=== PATIENT | female | born 1965 | race African-American/Black ===

== ENCOUNTER → 2017-07-14 | Outpatient (CLI) | payer MEDICAID, OTHER ==
--- NOTE | 2017-07-14 14:02 | KCIC ---
Right lower extremity venous doppler ultrasound History: Localized edema Comparison: None Findings: Multiple grayscale, color, and duplex spectral analysis sonographic images were acquired of the right lower extremity veins to evaluate for the presence of DVT. There is normal phasicity. Normal compression, color-flow, and augmentation is demonstrated from the right common femoral to the popliteal veins. There is normal color flow of the proximal greater saphenous and profunda femoris veins. There is normal color flow of segments of the calf veins. Impression: 1. There is no evidence of deep venous thrombosis from the right common femoral to popliteal veins. Electronically signed by: Omkar Parker MD (07/14/2017 1:58 PM) [facility]-[id number]
--- NOTE | 2017-07-14 14:05 | KCIC ---
Bilateral lower extremity arterial ultrasound History: Pain, swelling, surgical injury Findings: Multiple grayscale, color, and duplex spectral analysis sonographic images were acquired of the right lower extremity arteries. No focal vessel occlusion was identified. There are abnormal monophasic waveforms of the common femoral artery and profunda femoris artery, otherwise mostly biphasic waveforms. Velocities in cm/sec: Common femoral artery 189 Profunda femoris artery 60 Proximal SFA 99 Mid SFA 89 Distal SFA 90 Popliteal artery 42 Peroneal artery 40 Anterior tibial artery 112 Dorsalis pedis artery 97 Posterior tibial artery 49 Impression: 1. No focal vessel occlusion is demonstrated. There are abnormal monophasic waveforms of the right common femoral and profunda femoris arteries which may represent a component of inflow disease. Electronically signed by: Omkar Parker MD (07/14/2017 2:02 PM) [facility]
== END | disposition home or self-care (01) ==
LOC: KCIC US 12:57
PROVIDERS: ATTEND Internal Medicine
DX: M79.604 Pain in right leg (principal); M79.605 Pain in left leg; M79.89 Other specified soft tissue disorders; R60.0 Localized edema
CPT/HCPCS: 93926; 93971

== ENCOUNTER 2017-09-01 06:31 | Outpatient (CLI) | payer OTHER ==
[2017-09-01] VITALS (8 sets, daily range): BP systolic 119–152; BP diastolic 71–89
[~2017-09-01] VITALS: Ht 149.9 cm; Wt 88.0 kg
[2017-09-01] MEDS ORDERED: IV 1/2 NORMAL SALINE 1,000 ML IV SCH ×2 (06:50→09:06)
[2017-09-01] MEDS ORDERED: IODIXANOL 320 MG/ML 100 ML VIAL. ONE (07:13)
[2017-09-01] MEDS ORDERED: HEPARIN for ARTERIAL LINE 1,500 ML ONE (07:13)
[2017-09-01] MEDS ORDERED: LIDOCAINE 2% 20 ML VIAL. ONE (07:13)
[2017-09-01 07:33] LABS: HEMATOCRIT 37.2 % (36.0-47.0); HEMOGLOBIN 12.1 g/dL (12.0-15.5); RED BLOOD COUNT 4.16 x10^6/uL (3.50-5.40); RED CELL DISTRIBUTION WIDTH 13.5 % (11.5-14.5); WHITE BLOOD COUNT 4.9 x10^3/uL (4.0-11.0)
[2017-09-01 07:45] LABS: CALCIUM 9.3 mg/dL (8.5-10.1); CREATININE 1.1 mg/dL (0.6-1.0); GFR 63.6; POTASSIUM 3.3 mmol/L (3.5-5.1)
[2017-09-01 07:56] LABS: PROTHROMBIN TIME PATIENT 12.9 SEC (11.7-14.0)
[2017-09-01] MEDS ORDERED: LOSA1TAB19 PO (08:02)
[2017-09-01] MEDS ORDERED: OMEP40CA5 PO (08:02)
[2017-09-01] MEDS ORDERED: TRAM50TA PO (08:02)
[2017-09-01] MEDS ORDERED: HEPARIN for IV BOLUS 10,000 UNIT/10 ML VIAL. ONE (08:13)
[2017-09-01] MEDS ORDERED: fentaNYL PF VIAL 100 MCG/2 ML VIAL ONE (08:13)
[2017-09-01] MEDS ORDERED: MIDAZOLAM HCL/PF 2 MG/2 ML VIAL. ONE (08:13)
[2017-09-01] MEDS ORDERED: fentaNYL PF VIAL 100 MCG/2 ML VIAL IV ONE (08:45)
[2017-09-01] MEDS ORDERED: IODIXANOL 320 MG/ML 100 ML VIAL. IART ONE (08:45)
[2017-09-01] MEDS ORDERED: MIDAZOLAM HCL/PF 2 MG/2 ML VIAL. IV ONE (08:45)
[2017-09-01] MEDS ORDERED: LIDOCAINE 2% 20 ML VIAL. IJ ONE (08:45)
[2017-09-01] MEDS ORDERED: POTASSIUM CHLORIDE 20 MEQ TABLET.ER. PO ONE (09:00)
--- NOTE | 2017-09-01 09:06 | PDOC ---
MODERATE SEDATION ASSESSMENT RISKS/ALTERNATIVES Risks/Alternatives Risks and alternatives of this type of sedation and procedure discussed with: RISK/ALTERNATIVES: Patient H & P ON CHART H & P H & P on chart and reviewed for co-morbid conditions and appropriate labs. H&P ON CHART: Yes STATUS PREG STATUS ASSESSED: N/A MEDS/ALLERGIES REVIEWED Meds/Allergies Reviewed Medications and Allergies including time and route of recently administered narcotics and sedatives. MEDS/ALLERGIES REVIEWED: Yes ASA RATING ASA RATING: II AIRWAY ASSESSMENT Airway Assessment Airway patency, oral function limitations, presence of caps, crowns, dentures, partials, and ability to extend neck assessed. AIRWAY ASSESSMENT: Yes MALLAMPATI SCORE MALLAMPATI SCORE: II PRE-SEDATION ASSESSMENT PRE-SEDATION ASSESSMENT: Yes OLI MONTES DE OCA MD Sep 01, 2017 09:06
--- NOTE | 2017-09-01 09:18 | CARD ---
APPROVED REPORT Procedure(s) performed: Moderate Sedation: 37 Minutes
== END 2017-09-01 11:15 | disposition home or self-care (01) ==
LOC: CCL 06:31
PROVIDERS: ATTEND Internal Medicine Cardiovascular Disease
DX: I70.213 Atherosclerosis of native arteries of extremities with intermittent claudication, bilateral legs (principal); E78.00 Pure hypercholesterolemia, unspecified; I10 Essential (primary) hypertension; K21.9 Gastro-esophageal reflux disease without esophagitis; Z98.51 Tubal ligation status; Z87.39 Personal history of other diseases of the musculoskeletal system and connective tissue
CPT/HCPCS: 36246; 36415; 75630; 80048; 85027; 85610; 99152; 99153; C1769; C1771; C1892; G0269; J1644; J2250; J3010; Q9967; J2001

== ENCOUNTER → 2017-09-16 | Outpatient (CLI) | payer OTHER ==
[2017-09-01 11:00] VITALS: BP 119/85
[~2017-09-16] MED LIST: LOSA1TAB19 PO; OMEP40CA5 PO; TRAM50TA PO
--- NOTE | 2017-09-16 13:11 | CARD ---
APPROVED REPORT EXAM: Two-dimensional and M-mode echocardiogram with Doppler and color Doppler. Other Information Quality : Good INDICATION Hypertension/HCVD 2D DIMENSIONS Left Atrium(2D)3.4 (1.6-4.0cm)IVSd1.2 (0.7-1.1cm) Aortic Root(2D)2.6 (2.0-3.7cm)LVDd4.7 (3.9-5.9cm) LVOT Diameter2.0 (1.8-2.4cm)PWd1.2 (0.7-1.1cm) LVDs3.2 (2.5-4.0cm)FS (%) 31.8 % SV60.8 mlLVEF(%)59.8 (>50%) Aortic Valve AoV Peak Tomas.138.7cm/sAoV VTI26.3cm AO Peak GR.7.7mmHgLVOT Peak Tomas.100.4cm/s AO Mean GR.4mmHgAVA (VMAX)2.27cm2 BART (VTI)2.50cm2 Mitral Valve MV E Zfvbqizt41.2cm/sMV DECEL SMQC852hj MV A Hrdbyfqd425.9cm/sE/A Ratio0.7 Tricuspid Valve TR P. Lwwvyuwx015eb/sRAP GZDNHIXK0jzLh TR Peak Gr.90ecUbXYHX18zoEz Pulmonary Vein S1 Ajpiidll30.7cm/sD2 Hqykryro02.2cm/s LEFT VENTRICLE The left ventricle is normal size. There is mild concentric left ventricular hypertrophy. Left ventri rhoda systolic function is normal. The Ejection Fraction is 55-60%. There is normal LV segmental wall m otion. Transmitral Doppler flow pattern is Grade I-abnormal relaxation pattern. RIGHT VENTRICLE The right ventricle is normal size. The right ventricular systolic function is normal. ATRIA The left atrium size is normal. The right atrium size is normal. The interatrial septum is intact wit h no evidence for an atrial septal defect or patent foramen ovale as noted on 2-D or Doppler imaging. AORTIC VALVE The aortic valve is calcified but opens well. Doppler and Color Flow revealed no significant aortic r egurgitation. There is no significant aortic valvular stenosis. MITRAL VALVE The mitral valve is mildly calcified but opens well. There is no evidence of mitral valve prolapse. T here is no mitral valve stenosis. Doppler and Color Flow revealed no mitral valve regurgitation noted . TRICUSPID VALVE The tricuspid valve is normal in structure. Doppler and Color Flow revealed mild tricuspid regurgitat ion. There is mild pulmonary hypertension. The PA pressure was estimated at 32 mmHg. There is no tric uspid valve prolapse or vegetation. There is no tricuspid valve stenosis. PULMONIC VALVE The pulmonary valve is normal in structure and function. Doppler and Color Flow revealed no pulmonic valvular regurgitation. There is no pulmonic valvular stenosis. GREAT VESSELS The aortic root is normal in size. The ascending aorta is normal in size. The IVC is normal in size a nd collapses >50% with inspiration. PERICARDIAL EFFUSION There is no pleural effusion. There is no evidence of significant pericardial effusion. Critical Notification Critical Value: No <Conclusion> Left ventricle systolic function is normal. The Ejection Fraction is 55-60%. There is normal LV segmental wall motion. Transmitral Doppler flow pattern is Grade I-abnormal relaxation pattern. Mild tricuspid regurgitation. The PA pressure was estimated at 32 mmHg. There is no evidence of significant pericardial effusion.
--- NOTE | 2017-09-22 07:10 | EKG ---
[facility] [address] [place] [address] Test Date: 2017-09-22 Test Time: 05:03:14 Pat Name: DEDE NEELY Department: Room: Gender: Returns Clerk: : 1965 Requested By: OLI MONTES DE OCA Order Number: [id number] Reading MD: Armani Thomson MD Interpretive Statements NO SIGNIFICANT ARRHYTHMIAS Electronically Signed On 09-22-2017 15:30:47 MOLD FILLING OPERATOR by Armani Thomson MD
== END | disposition home or self-care (01) ==
LOC: ECHO 10:46
PROVIDERS: ATTEND Internal Medicine Cardiovascular Disease
DX: I11.9 Hypertensive heart disease without heart failure (principal); I07.1 Rheumatic tricuspid insufficiency; I27.20 Pulmonary hypertension, unspecified; R00.2 Palpitations
CPT/HCPCS: 93225; 93306

== ENCOUNTER → 2018-12-20 | Outpatient (CLI) | payer OTHER ==
[2017-09-01 11:00] VITALS: BP 119/85
--- NOTE | 2018-12-21 12:44 | KCIC ---
Bilateral digital screening mammograms with 3-D tomosynthesis: Reason for examination: Routine screening. Comparison is made to previous studies dated 01/13/2017 and 12/12/2015. Bilateral mammograms in CC and oblique projections were obtained with 2-D imaging and 3-D tomosynthesis imaging on a Siemens Inspiration unit and reviewed on the workstation. Interpretation was made with the benefit of CAD. The skin and nipples show no abnormalities. No abnormal axillary lymph nodes are seen. The breast parenchyma is heterogeneously dense. (Breast density: Category C.) There are patchy areas of parenchymal asymmetry which are stable. There are no dominant masses, suspicious calcifications or architectural distortion. Impression: No evidence of malignancy. Recommend routine screening. Your patient's mammogram demonstrates that she has dense breast tissue (breast density category C or D), which could hide abnormalities, and if she has other risk factors for breast cancer that have been identified, she might benefit from supplemental screening tests that may be suggested by you as her ordering physician. Dense breast tissue, in and of itself, is a relatively common condition. Therefore, this information is not provided to cause undue concern, but rather to raise your awareness and to promote discussion with your patient regarding the presence of other risk factors, in addition to dense breast tissue. Your patient's mammography results will be sent to her. BI-RAD Category 2: Benign. "Our facility is accredited by the [employer] Mammography Program." This patient's information has been entered into a reminder system for the patient to be notified with the results of her examination and a target date for the next mammogram. Electronically signed by: Lynette Marcos MD (12/21/2018 12:41 PM) [facility]
== END | disposition home or self-care (01) ==
LOC: KCIC MAMMO 17:48
DX: Z12.31 Encounter for screening mammogram for malignant neoplasm of breast (principal); R92.8 Other abnormal and inconclusive findings on diagnostic imaging of breast
CPT/HCPCS: 77063; 77067

== ENCOUNTER → 2020-01-23 | Outpatient (CLI) | payer OTHER ==
[2017-09-01 11:00] VITALS: BP 119/85
[~2020-01-23] MED LIST changes: +OMEP40CA45 PO; -OMEP40CA5 PO
--- NOTE | 2020-01-23 12:07 | KCIC ---
EXAM: Bilateral digital screening mammogram with tomosynthesis. HISTORY: 54-year-old female presents for screening mammography. TECHNIQUE: Full-field digital craniocaudal and mediolateral oblique 2D and 3D tomosynthesis images of both breasts are obtained for evaluation. Computer aided detection with [employer] MarsD software version 9.3 was applied. COMPARISON: 12/20/2018 BREAST PARENCHYMAL DENSITY: Level B - Scattered fibroglandular densities. FINDINGS: There is no new suspicious mass, microcalcification or region of architectural distortion. There is stable areas of nodularity and asymmetry within both breasts, including a small circumscribed nodule within the medial subareolar aspect of the left breast. IMPRESSION: BI-RADS Category 2: Benign finding(s). RECOMMENDATION: Annual mammography is recommended. If your mammogram demonstrates that you have dense breast tissue, which could hide abnormalities, and if you have other risk factors for breast cancer that have been identified, you might benefit from supplemental screening tests that may be suggested by your ordering physician. Dense breast tissue, in and of itself, is a relatively common condition. This information is not provided to cause undue concern, but rather to raise your awareness and to promote discussion with your physician regarding the presence of other risk factors, in addition to dense breast tissue. A report of your mammography results will be sent to you and your physician. You should contact your physician if you have any questions or concerns regarding this report. Mammography is a sensitive method for finding small breast cancers, but it does not detect them all and is not a substitute for careful clinical examination. A negative mammogram does not negate a clinically suspicious finding and should not result in delay in biopsying a clinically suspicious abnormality. PQRS compliance statement - Patient information was entered into a reminder system with a target due date for the next mammogram. "Our facility is accredited by the [employer] Mammography Program." Electronically signed by: Batool Grijalva MD (01/23/2020 12:04 PM) [email or web address]
== END | disposition home or self-care (01) ==
LOC: KCIC MAMMO 10:08
PROVIDERS: ATTEND Family Medicine
DX: Z12.31 Encounter for screening mammogram for malignant neoplasm of breast (principal); N63.42 Unspecified lump in left breast, subareolar
CPT/HCPCS: 77063; 77067

== ENCOUNTER → 2020-03-09 | Outpatient (CLI) | payer OTHER ==
[2017-09-01 11:00] VITALS: BP 119/85
[~2020-03-09] MED LIST changes: +REGADENOSON 0.4 MG/5 ML DISP.SYRIN. IV ONE
--- NOTE | 2020-03-09 10:48 | RAD ---
MR#: [id number] Date of Study: 03/09/2020 Ordering Physician: OLI MONTES DE OCA Referring Physician: JUANY DUPREE Tech: APPROVED REPORT Test Type: Pharmacological Stress Nurse/Tech: Beena Andrade RN Test Indications: Dyspnea on exertion Cardiac History: Hypertension, Family history Medications: See Electronic Medical Record Medical History: See Electronic Medical Record Resting ECG: SR Resting Heart Rate: 77 bpm Resting Blood Pressure: 154/90mmHg Pretest Chest Pain: No chest pain Nurse/Tech Notes S1S1, Lungs CTA Consent: The procedure was explained to the patient in lay terms. Informed consent was witnessed. Felix eout was entered into [employer]. History and Stress Test performed by JAYDEN Canales Pharm. Details Pharmacologic stress testing was performed using 0.4mg per 5ml of regadenoson given intravenously ove r 7-10 seconds. Stress Symptoms Dyspnea, Nausea POST EXERCISE Reason for Termination: Infusion complete Max HR: 133 bpm Max Blood Pressure: 168/92mmHg Blood Pressure response to exercise: Normal blood pressure response during stress. Heart Rate response to exercise: WNL Chest Pain: No. Arrhythmia: No. ST Change: No. INTERPRETATION Stress EKG Conclusion: Baseline EKG showed sinus rhythm. No ischemic changes at peak stress. No arr hythmias. STRESS DATA End Diast. Vol.84.0mlAv. Heart Rate76.0bpm End Syst. Vol.27.0mlCO Index BSA0.0L/min Myocardial Qgle202.0gEject. Exginfut26.0% Stress Rates Pk. Fill Rate3.66EDV/secLVtime Pk. Fill 229.90msec Pk. Empty Rate4.36ESV/secLVtime Pk. Enhsr699.37msec / Pk. Fill1.26EDV/sec Stress Scores Regional WT0.00Summed WT4.00 Regional WM0.00Summed WM0.00 LV Perfusion Stress scintigraphic images did not show any perfusion defects. Wall Motion Normal left ventricular systolic function with ejection fraction calculated at 68%. LV Perf. Quant 17 Seg. SSS0.00 Stress Defect Extent (% LAD)0.00Rest Defect Extent (% LAD)Rev. Defect Extent (% LAD)0.00 Stress Defect Extent (% LCX) 0.00Rest Defect Extent (% LCX)Rev. Defect Extent (% LCX)0.00 Stress Defect Extent (% RCA)0.00Rest Defect Extent (% RCA)Rev. Defect Extent (% RCA)0.00 Stress Defect Extent (% ADITYA)0.00Rest Defect Extent (% ADITYA)Rev. Defect Extent (% ADITYA)0.00 Conclusion 1. Regadenoson cardioisotope stress test did not show any evidence of ischemia or infarct. 2. Normal left ventricular systolic function with ejection fraction calculated at 68%. 3. Low risk for cardiac events. Signed by : Oli Montes De Oca, Electronically Approved : 03/09/2020 10:48:10
== END | disposition home or self-care (01) ==
LOC: NM 07:43
PROVIDERS: ATTEND Internal Medicine Cardiovascular Disease
DX: R06.09 Other forms of dyspnea (principal); I10 Essential (primary) hypertension
CPT/HCPCS: 78452; 93017; A9500; J2785

== ENCOUNTER → 2020-03-13 | Outpatient (CLI) | payer OTHER ==
[2017-09-01 11:00] VITALS: BP 119/85
[~2020-03-13] MED LIST changes: -REGADENOSON 0.4 MG/5 ML DISP.SYRIN. IV ONE
--- NOTE | 2020-03-13 15:14 | CARD ---
MR#: [id number] Date of Study: 03/13/2020 Ordering Physician: OLI MONTES DE OCA, Referring Physician: OLI MONTES DE OCA Tech: Maria Guadalupe Rowley RDCS APPROVED REPORT EXAM: Two-dimensional and M-mode echocardiogram with Doppler and color Doppler. Other Information Quality : Good INDICATION Exertional Dyspnea 2D DIMENSIONS RVDd2.9 (2.9-3.5cm)Left Atrium(2D)3.7 (1.6-4.0cm) IVSd1.1 (0.7-1.1cm)Aortic Root(2D)2.6 (2.0-3.7cm) LVDd4.5 (3.9-5.9cm)LVOT Diameter1.8 (1.8-2.4cm) PWd1.1 (0.7-1.1cm)LVDs3.2 (2.5-4.0cm) FS (%) 28.4 %SV49.9 ml LVEF(%)54.9 (>50%) Aortic Valve AoV Peak Tomas.146.1cm/sAoV VTI25.5cm AO Peak GR.8.5mmHgLVOT Peak Tomas.125.3cm/s AO Mean GR.5mmHgAVA (VMAX)2.29cm2 BART (VTI)2.40cm2 Mitral Valve MV E Kneqoqwg32.4cm/sMV DECEL PLAQ420vw MV A Xriwrozg70.0cm/sE/A Ratio1.0 Tricuspid Valve TR P. Gxdokmtp785ak/sRAP FGLPUNJA6pyXx TR Peak Gr.76hmOhRMBS11pwGi Pulmonary Vein S1 Hkfoqcva79.8cm/sD2 Krnnvecz89.7cm/s LEFT VENTRICLE The left ventricle is normal size. There is normal left ventricular wall thickness. The left ventricu lar systolic function is normal and the ejection fraction is within normal range. The Ejection Fracti on is 55-60%. There is normal LV segmental wall motion. The left ventricular diastolic function and f illing is normal for age. RIGHT VENTRICLE The right ventricle is normal size. The right ventricular systolic function is normal. ATRIA The left atrium size is normal. The right atrium size is normal. The interatrial septum is intact wit h no evidence for an atrial septal defect or patent foramen ovale as noted on 2-D or Doppler imaging. AORTIC VALVE The aortic valve is normal in structure and function. Doppler and Color Flow revealed no significant aortic regurgitation. There is no significant aortic valvular stenosis. MITRAL VALVE The mitral valve is normal in structure and function. There is no evidence of mitral valve prolapse. There is no mitral valve stenosis. Doppler and Color-flow revealed trace mitral regurgitation. TRICUSPID VALVE The tricuspid valve is normal in structure and function. Doppler and Color Flow revealed trace to mil d tricuspid regurgitation. The PA pressure was estimated at 36 mmHg. There is no tricuspid valve sten osis. PULMONIC VALVE The pulmonary valve is normal in structure and function. Doppler and Color Flow revealed trace pulmon ic valvular regurgitation. There is no pulmonic valvular stenosis. GREAT VESSELS The aortic root is normal in size. The ascending aorta is normal in size. The IVC is normal in size a nd collapses >50% with inspiration. PERICARDIAL EFFUSION There is no evidence of significant pericardial effusion. Critical Notification Critical Value: No <Conclusion> The left ventricle is normal size. The left ventricular systolic function is normal and the ejection fraction is within normal range. The Ejection Fraction is 55-60%. Doppler and Color Flow revealed no significant aortic regurgitation. There is no significant aortic valvular stenosis. Doppler and Color-flow revealed trace mitral regurgitation. Doppler and Color Flow revealed trace to mild tricuspid regurgitation. The PA pressure was estimated at 36 mmHg. Signed by : Al Prieto MD Electronically Approved : 03/13/2020 15:13:38
== END | disposition home or self-care (01) ==
LOC: ECHO 14:14
PROVIDERS: ATTEND Internal Medicine Cardiovascular Disease
DX: I07.1 Rheumatic tricuspid insufficiency (principal); R06.09 Other forms of dyspnea
CPT/HCPCS: 93306

== ENCOUNTER → 2020-07-18 | Outpatient (CLI) | payer OTHER ==
[2017-09-01 11:00] VITALS: BP 119/85
--- NOTE | 2020-07-18 13:31 | KCIC ---
EXAM: Abdomen and pelvis CT without intravenous contrast. HISTORY: Pain. TECHNIQUE: Computed tomographic images of the abdomen and pelvis were obtained without contrast. Multiplanar reformatting was performed. *One or more of the following individualized dose reduction techniques were utilized for this examination: 1. Automated exposure control. 2. Adjustment of the mA and/or kV according to patient size. 3. Use of iterative reconstruction technique. COMPARISON: None. FINDINGS: Evaluation of the lower thorax is unremarkable. No hepatic lesion is seen. The gallbladder, pancreas, spleen and adrenal glands are unremarkable. There is a 2.6 cm simple cyst within the posterior mid zone of the left kidney and 2.0 cm cyst within the lateral lower mid zone of the left kidney. There is no hydronephrosis. There is no appendicitis. There is no bowel obstruction. The uterus is surgically absent. There are bilateral ovarian follicles with a suspected dominant ovarian follicle/follicular cyst measuring 1.9 cm on the right. The bladder is unremarkable. There is no lymphadenopathy. The aorta is normal in caliber. There is no suspicious osseous lesion. IMPRESSION: 1. Simple appearing left renal cysts. No follow-up is routinely recommended for simple renal cysts. 2. Multiple bilateral ovarian follicles with a suspected dominant left ovarian follicle/follicular cyst measuring 1.9 cm. Electronically signed by: Batool Grijalva MD (07/18/2020 1:28 PM) [facility]
== END | disposition home or self-care (01) ==
LOC: KCIC CT 10:56
PROVIDERS: ATTEND Family Medicine
DX: N28.1 Cyst of kidney, acquired (principal)
CPT/HCPCS: 74176

== ENCOUNTER → 2021-01-24 | Outpatient (CLI) | payer OTHER ==
[2017-09-01 11:00] VITALS: BP 119/85
--- NOTE | 2021-01-24 10:59 | KCIC ---
EXAM: Bilateral digital screening mammogram with tomosynthesis. HISTORY: 55-year-old female presents for screening mammography. TECHNIQUE: Full-field digital craniocaudal and mediolateral oblique 2D and 3D tomosynthesis images of both breasts are obtained for evaluation. Computer aided detection was applied. COMPARISON: 01/23/2020 and 12/20/2018 BREAST PARENCHYMAL DENSITY: Level B - Scattered fibroglandular densities. FINDINGS: There is architectural distortion within the 3:00 position of the right breast centered adán roximately 4.5 cm from the nipple. There are stable areas of nodularity and asymmetry within both adelso asts, allowing for differences in patient positioning. There is no suspicious calcification. IMPRESSION: BI-RADS Category 0: Incomplete. Additional imaging needed. RECOMMENDATION: Further evaluation with a full field true view and spot compression views of the righ t breast and right breast sonography to assess architectural distortion at the anterior 3:00 position is recommended. If your mammogram demonstrates that you have dense breast tissue, which could hide abnormalities, and if you have other risk factors for breast cancer that have been identified, you might benefit from s upplemental screening tests that may be suggested by your ordering physician. Dense breast tissue, i n and of itself, is a relatively common condition. This information is not provided to cause undue c oncern, but rather to raise your awareness and to promote discussion with your physician regarding th e presence of other risk factors, in addition to dense breast tissue. A report of your mammography re sults will be sent to you and your physician. You should contact your physician if you have any ques tions or concerns regarding this report. Mammography is a sensitive method for finding small breast cancers, but it does not detect them all a nd is not a substitute for careful clinical examination. A negative mammogram does not negate a clin ically suspicious finding and should not result in delay in biopsying a clinically suspicious abnorma lity. PQRS compliance statement - Patient information was entered into a reminder system with a target due date for the next mammogram. "Our facility is accredited by the [employer] Mammography Program." Electronically signed by: Batool Grijalva MD (01/24/2021 10:56 AM) [email or web address]
== END ==
LOC: KCIC MAMMO 10:08
PROVIDERS: ATTEND Family Medicine
DX: Z12.31 Encounter for screening mammogram for malignant neoplasm of breast (principal)
CPT/HCPCS: 77063; 77067

== ENCOUNTER → 2021-02-14 | Outpatient (CLI) | payer OTHER ==
[2017-09-01 11:00] VITALS: BP 119/85
--- NOTE | 2021-02-14 15:23 | KCIC ---
Right breast diagnostic digital mammograms: Reason for examination: Architectural distortion on screening mammogram. Comparison is made to mammographic exam dated 01/24/2021. Coned compression views were obtained in CC and lateral projections. Parenchymal asymmetry persists i n the central 3:00 position. Further evaluation with ultrasound will follow. IMPRESSION: Parenchymal density in the central 3:00 position of the right breast. Ultrasound to follow. BI-RADS Category 0: Incomplete. Needs additional imaging evaluation. Right breast ultrasound: Ultrasound examination of the right breast was performed with attention to the upper outer quadrant a nd axilla. At the 2:00 position 3 cm from the nipple, there appears to be a focal area of architectural distorti on present probably correlates with the area of mammographic concern. This appears to measure approxi mately 6.6 mm in greatest dimension. No other focal suspicious lesions are seen. No abnormal appearin g lymph nodes are seen in the right axilla. IMPRESSION: Focal architectural distortion 6.6 mm in size at 2:00 position 3 cm from the nipple. Recommend furthe r evaluation with ultrasound-guided biopsy. BI-RADS Category 4: Suspicious. These findings have been discussed with the patient and the physician's nurse certified surgical tech/first assistant, Misti, was notified about these findings via voice mail on 02/14/2021 at 1520.. "Our facility is accredited by the [employer] Mammography Program." This patient's information has been entered into a reminder system for the patient to be notified wit h the results of her examination and a target date for the next mammogram. Electronically signed by: Lynette Marcos MD (02/14/2021 3:21 PM) [email or web address]
== END ==
LOC: KCIC MAMMO 12:48
PROVIDERS: ATTEND Family Medicine
DX: R92.2 Inconclusive mammogram (principal)
CPT/HCPCS: 76641; 77065

== ENCOUNTER → 2022-01-24 | Outpatient (CLI) | payer OTHER ==
[2017-09-01 11:00] VITALS: BP 119/85
[~2022-01-24] MED LIST changes: -OMEP40CA45 PO; +OMEP40CA7 PO
--- NOTE | 2022-01-24 10:22 | RAD ---
INDICATION: Reason: RT LEG PAIN / Spl. Instructions: / History: COMPARISON: None. TECHNIQUE: Grayscale, color and doppler ultrasound images were obtained of the right lower extremity venous vasculature. RIGHT: No thrombus identified in the common femoral vein, femoral vein, popliteal vein or visualized calf ve ins. IMPRESSION: * No thrombus identified in deep venous system of right lower extremity. Electronically signed by: Luis Sandoval MD (01/24/2022 10:20 AM) [id number]
== END ==
LOC: US 09:34
PROVIDERS: ATTEND Family Medicine
DX: M79.604 Pain in right leg (principal)
CPT/HCPCS: 93971